=== PATIENT | male | born 1935 | race Caucasian/White ===

== ENCOUNTER 2024-06-26 17:20 | Inpatient (IN) | payer MEDICARE ==
[~2024-06-26] VITALS: Ht 172.7 cm; Wt 88.0 kg
[2024-06-26] MEDS ORDERED: ELIQUIS2.5 MG PO (17:52)
[2024-06-26] MEDS ORDERED: METF500 PO (17:53)
[2024-06-26] MEDS ORDERED: MethylPREDNISolone Sod Succ 125 MG Vial IV ONE (17:55)
[2024-06-26] MEDS ORDERED: Ipratropium/Albuterol SulF 2.5-0.5MG/3 ML Amp INH ONE ×2 (17:55)
[2024-06-26] MEDS ORDERED: METO50ER PO (18:29)
[2024-06-26] MEDS ORDERED: LOSARTAN-HCTZ1 EAC5 PO (18:29)
[2024-06-26] MEDS ORDERED: POTCHL20ER PO (18:30)
[2024-06-26] MEDS ORDERED: FURO40 PO (18:30)
[2024-06-26] MEDS ORDERED: BASAGLAR K100 UNIT/1 SC (18:30)
[2024-06-26] MEDS ORDERED: MOUNJARO2.5 MG/0.5 SC (18:30)
[2024-06-26] MEDS ORDERED: ATOR20 PO (18:30)
[2024-06-26 18:43] LABS: BASOPHILS ABSOLUTE AUTO 0.05 K/mm3 (0.00-0.23); BASOPHILS PERCENT AUTO 0 % (0-2); EOSINOPHILS ABSOLUTE AUTO 0.04 K/mm3 (0.00-0.68); EOSINOPHILS PERCENT AUTO 0 % (0-6); Hematocrit 34.8 % (37.0-53.0); Hemoglobin 11.9 g/dL (13.5-17.5); IMMATURE GRAN ABSOLUTE AUTO 0.04 K/mm3 (0.00-0.10); IMMATURE GRAN PERCENT AUTO 0 % (0-1); LYMPHOCYTES ABSOLUTE AUTO 2.16 K/mm3 (0.84-5.20); LYMPHOCYTES PERCENT AUTO 17 % (21-46); MONOCYTES ABSOLUTE AUTO 1.24 K/mm3 (0.16-1.47); MONOCYTES PERCENT AUTO 10 % (4-13); Mean Corpuscular HGB 33.8 pg (26.0-34.0); Mean Corpuscular HGB Conc 34.2 g/dL (31.5-36.5); Mean Corpuscular Volume 99 fL (80-100); Mean Platelet Volume 9.7 fL (9.1-12.4); NEUTROPHILS ABSOLUTE AUTO 9.17 K/mm3 (1.96-9.15); NEUTROPHILS PERCENT AUTO 72 % (41-73); Platelet Count 322 K/mm3 (150-400); RDW Coefficient Variation 13.2 % (11.7-14.2); RDW Standard Deviation 46.9 fL (35.1-46.3); Red Blood Cell Count 3.52 M/mm3 (4.30-5.90)
[2024-06-26 19:01] LABS: Bun/Creatinine Ratio 24.3 (12.0-20.0); Calcium, Blood 10.3 mg/dL (8.5-10.1); Creatinine, Blood 2.02 mg/dL (0.60-1.20); Magnesium, Blood 2.6 mg/dL (1.6-2.4)
[2024-06-26] MEDS ORDERED: NS 1,000 ML IV SCH (20:15)
[2024-06-26] MEDS ORDERED: Lactated Ringer's 1,000 ML IV SCH (20:40)
[2024-06-26] MEDS ORDERED: Ondansetron HCl 2 MG / ML 2ML Vial IV PRN (20:40)
[2024-06-26] MEDS ORDERED: Apixaban 5 MG Tab PO SCH (21:00)
[2024-06-26] MEDS ORDERED: Insulin Glargine-Yfgn 100 Unit/mL 3 ML SYR SC SCH (21:00)
--- NOTE | 2024-06-26 21:58 | NUR ---
ADMISSION NOTE PT ARRIVED IN RM 304 AT 2158 VIA WHEELCHAIR. PT NEEDED TO URINATE, SO PT WAS TAKEN TO RESTROOM W/ FWW AND 1PA. PT GAIT WAS WEAK. PT WAS AOX4. HE IS COOPERATIVE AND ABLE TO MAKE HIS NEEDS KNOWN. HE WAS FORGETFUL AT TIMES, OFTEN KEEPING HIS ARM UP WHEN RN ASKED TO KEEP HIS ARM RESTED WHEN VITALS WERE TAKEN. THIS RN TO ASSUME CARE.
[2024-06-26 22:11] VITALS: BP 91/46
[2024-06-26 23:38] VITALS: BP 113/57
--- NOTE | 2024-06-27 01:09 | NUR ---
NURSE NOTE PT C/O LOWER BACK PAIN, AND PT STATED HE WOULD TAKE OTC TYLENOL FOR IT. CALLED HOSPITALIST FOR ORDERS FOR TYLENOL. RECIEVED ORDERS.
[2024-06-27] MEDS ORDERED: Acetaminophen 325 MG TABLET PO PRN (01:10)
[2024-06-27 04:40] LABS: Hemoglobin 11.3 g/dL (13.5-17.5); Mean Corpuscular HGB 33.6 pg (26.0-34.0); Mean Corpuscular HGB Conc 34.2 g/dL (31.5-36.5); Mean Corpuscular Volume 98 fL (80-100); Mean Platelet Volume 9.5 fL (9.1-12.4); Platelet Count 277 K/mm3 (150-400); RDW Coefficient Variation 13.1 % (11.7-14.2); RDW Standard Deviation 46.7 fL (35.1-46.3); Red Blood Cell Count 3.36 M/mm3 (4.30-5.90); White Blood Cell Count 10.38 K/mm3 (4.00-11.30)
[2024-06-27 04:56] VITALS: BP 115/62
[2024-06-27 05:08] LABS: Albumin, Blood 3.2 g/dL (3.4-5.0); Albumin/Globulin Ratio 0.8 (0.8-1.8); Bilirubin, Total 0.6 mg/dL (0.1-1.0); Bun/Creatinine Ratio 25.5 (12.0-20.0); Calcium, Blood 10.1 mg/dL (8.5-10.1); Creatinine, Blood 2.04 mg/dL (0.60-1.20); Potassium, Blood 3.7 mmol/L (3.5-5.5); Total Protein, Blood 7.2 g/dL (6.4-8.2)
--- NOTE | 2024-06-27 06:35 | NUR ---
SHIFT SUMMARY PT ARRIVED ON UNIT AT 2158. PT HAS BEEN RESTING IN BED OVERNIGHT. PT REMAINED AOX4, COOPERATIVE, AND ABLE TO MAKE NEEDS KNOWN. PT IS A 1PA W/ FWW. PT ON TELEMETRY. PT ONLY COMPLAINT WAS HIS BACK PAIN, WHICH HE TAKES TYLENOL OTC FOR. RN WAS ABLE TO GET ORDERS FOR TYLENOL, AND PT'S PAIN HAS BEEN RELIEVED WITH IT AND REST. NO ACUTE EVENTS OVERNIGHT.
[2024-06-27 07:21] VITALS: BP 122/65
[2024-06-27] MEDS ORDERED: Insulin Human Lispro 100 Units/ML 3ML Syringe SC SCH (07:30)
[2024-06-27] MEDS ORDERED: Atorvastatin 10 MG Tab PO SCH (09:00)
[2024-06-27] MEDS ORDERED: Rivaroxaban 10 MG Tab PO SCH (09:00)
[2024-06-27] MEDS ORDERED: Metoprolol Succinate 50 MG TABCR PO SCH (09:00)
[2024-06-27] MEDS ORDERED: ALBU90OI INH (10:56)
[2024-06-27] MEDS ORDERED: ACET500 PO (10:56)
[2024-06-27] MEDS ORDERED: THERA-D2000 UNIT PO (10:57)
[2024-06-27] MEDS ORDERED: DOCU100 PO (10:57)
[2024-06-27] MEDS ORDERED: L-Lysine500 M1 PO (10:59)
[2024-06-27] MEDS ORDERED: TRAM50 PO (11:00)
[2024-06-27] MEDS ORDERED: NITR.4SL SL (11:00)
[2024-06-27] MEDS ORDERED: FISH OIL 1,2001 EAC4 PO (11:00)
[2024-06-27] MEDS ORDERED: ZINC50 M3 PO (11:01)
[2024-06-27] MEDS ORDERED: TRIDERM28.4 GM TOP (11:01)
[2024-06-27 12:09] VITALS: BP 153/71
[2024-06-27] MEDS ORDERED: Lactated Ringer's 1,000 ML IV SCH (12:15)
[2024-06-27] MEDS ORDERED: TraMADol HCl 50 MG Tab PO PRN (12:15)
[2024-06-27 15:23] VITALS: BP 119/75
[2024-06-27] MEDS ORDERED: Albuterol 2.5 MG/3 ML VIAL INH PRN (15:50)
[2024-06-27] MEDS ORDERED: Sennosides 8.6 MG Tab PO ONE (18:45)
[2024-06-27] MEDS ORDERED: Polyethylene Glycol 3350 17 gm PO PRN (18:50)
[2024-06-27 19:18] VITALS: BP 134/64
--- NOTE | 2024-06-27 19:52 | NUR ---
SHIFT SUMMARY PATIENT WITH NO ACUTE EVENTS IN AM. MEDICATED FOR PAIN PER EMAR. HE TRIED GETTING UP TO BATHROOM WITH 1 PERSON ASSIST AND WALKER AROUND 4PM. HE MAKE IT TO BATHROOM WITH NO ISSUES. UPON WALKING BACK TO BED HE C/O BACK PAIN INCREASING, THEN BACK TIGHTENED/HUNCHED OVER AND PATIENT STATES, MY KNEES ARE GOING WEAK, BASEBALL CLUB MANAGER ASKE PATIEND IF HE CAN WALK TO BED OR NEEDS TO SLIDE TO FLOOR, HE SAID SLIDE TO FLOOR AND PROCEEDED TO SLIDE TO FLOOR WITH ASSISTANCE OF THIS BASEBALL CLUB MANAGER HOLDING UNDER HIS ARMS AN STANDING IN DOORWAY/LEANING AGAINST IT. PATIENT WITH NO INJURIES HE WAS ASSISTED TO FLOOR. HE TRIED STANDING UP WITH GREAT DIFFICULTY AND THEN WAS AGREABLE TO LIFT. LIFT SHEET PLACED UNDER PATIENT AND GURWINDER USED TO GET HIM BACK TO BED. THIS BASEBALL CLUB MANAGER DISCUSSED ONLY STANDING AT BEDSIDE TO USE URINAL MOVING FORWARD UNTIL AFTER THERAPY EVALUATES. HE IS AGREABLE AND ORIENTEDX4, COOPERATIVE WITH CARE AND CALLS APPROPRAIATELY.
[2024-06-27 23:03] LABS: Source, Urine Clean Catch
[2024-06-27 23:14] LABS: Appearance, Urine Clear (Clear); Bilirubin, Urine Neg (Neg); Blood, Urine 5+ (Neg); Color, Urine Yellow (P-Yellow); Glucose Qualitative, Urine Neg (Neg); Ketones, Urine Neg (Neg); Leukocyte Esterase, Urine Neg (Neg); Nitrite, Urine Neg (Neg); Protein, Urine 1+ (Neg); Specific Gravity, Urine 1.005 (1.003-1.022); Urobilinogen, Urine NORM (Normal)
[2024-06-27 23:43] LABS: Bacteria Few /hpf; Red Blood Cells, Urine 25-50 /hpf (0-2); Squamous Epithelial Cells Few /hpf (Few); White Blood Cells, Urine 0-2 /hpf (0-5)
[2024-06-28] VITALS (7 sets, daily range): BP systolic 102–150; BP diastolic 53–78
[2024-06-28 01:17] LABS: Eosinophils-Raw #,Urine 0
[2024-06-28 01:18] LABS: White Blood Cells Urine 0-2 /hpf (0-5)
[2024-06-28 05:03] LABS: Hematocrit 33.5 % (37.0-53.0); Hemoglobin 11.5 g/dL (13.5-17.5); Mean Corpuscular HGB Conc 34.3 g/dL (31.5-36.5); Mean Corpuscular Volume 96 fL (80-100); Mean Platelet Volume 9.7 fL (9.1-12.4); Platelet Count 282 K/mm3 (150-400); RDW Coefficient Variation 12.8 % (11.7-14.2); RDW Standard Deviation 45.2 fL (35.1-46.3); Red Blood Cell Count 3.48 M/mm3 (4.30-5.90)
--- NOTE | 2024-06-28 05:30 | NUR ---
SHIFT SUMMARY; PATIENT SLEPT IN SHORT INTERVALS. DID NOT REQUIRE ANY PRN MEDS, TELE DISCONTINUED WE NEEDED TELE BOXES, DR FELT HE WAS STABLE ENOUGH TO STOP MONITORING. PATIENT DOES NOT USE CALL LIGHTJUST SETS OFF BED ALARM.
[2024-06-28 06:17] LABS: Albumin, Blood 3.2 g/dL (3.4-5.0); Anion Gap 12 mmol/L (3-11); Blood Urea Nitrogen 42 mg/dL (8-24); Bun/Creatinine Ratio 27.6 (12.0-20.0); CO2, Blood 25 mmol/L (21-32); Calcium, Blood 10.1 mg/dL (8.5-10.1); Chloride, Blood 104 mmol/L (98-108); Creatinine, Blood 1.52 mg/dL (0.60-1.20); Glomerular Filtration Rate 44 (60-); Glucose, Blood 122 mg/dL (70-99); Magnesium, Blood 2.4 mg/dL (1.6-2.4); Phosphorus, Blood 3.3 mg/dL (2.5-4.9); Potassium, Blood 3.6 mmol/L (3.5-5.5); Sodium, Blood 137 mmol/L (136-145)
[2024-06-28] MEDS ORDERED: Cholecalciferol 1000 Unit Tablet (=25MCG) PO SCH (09:00)
[2024-06-28] MEDS ORDERED: Sennosides 8.6 MG Tab PO SCH (09:00)
--- NOTE | 2024-06-28 16:09 | NUR ---
CASE CONFRENCE. PAIN IS A BARRIER TO PATIENT WORKING WITH PT. DISCUSSED MEDICATION OPTIONS WITH DR. ROTH AND PC TEAM TO DEVELOP A MEDICATION REGIMINE FOR PATIENT. DR. GALVAN WILL CONSULT ON PATIENT TOMORROW TO DISCUSS OPTIONS FOR TREATMENT. PC WILL FOLLOW UP WITH GOC CONVERSATION.
[2024-06-28] MEDS ORDERED: OxyCODONE HCL 5 MG TAB PO PRN (16:30)
--- NOTE | 2024-06-28 16:30 | NUR ---
PT HAD TO URINATE, I ASSISTED PT W/ URINAL WHILE SITTING ON SIDE OF BED. THERE WAS BROWN STOOL SMEARED ON THE SHEETS AND PULL UP. PT STOOD W/ WALKER W/ ASSISTANCE IN CHANGING HIS PULL UP. PT STOOD AND BOTH LEGS GAVE OUT AND WENT OUT FROM UNDERNEATH HIM. PT LANDED SITTING ON SIDE OF BED. PT STATES THAT HE HAD A SHARP PAIN IN HIS LOWER BACK WHEN HE STOOD UP. I THEN ASSISTED PT TO A LYING POSITION IN BED, AND ASSISTED WITH TURNING IN BED TO CHANGE SHEETS AND PROVIDE HIM W/ A CLEAN PULL UP. PT STATES PAIN LEVEL 7/10. CALL LIGHT IN REACH, DAUGHTER AT BEDSIDE.
[2024-06-28] MEDS ORDERED: Acetaminophen 500 MG Tab PO SCH (17:00)
[2024-06-28] MEDS ORDERED: Lidocaine 4% 1 Patch TOP SCH (17:00)
--- NOTE | 2024-06-28 18:50 | NUR ---
SHIFT SUMMARY PATIENT WITH INCREASING PAIN TODAY AND WEAKNESS OF KNEES. PT TRIED STANDING THIS AFTERNOON TO USE URINAL ASSISTED BY SANDBLASTER PAINT SPRAYER SABINO BUT HIS KNEES BUCKLED AND HE LANDED ON THE BED. NO INJURIES NOTED. DR ROTH NOTIFIED. HE IS MEDICATED FOR PAIN PER EMAR. UPON USE OF URINAL THIS EVENING PATIENT STATED IT STUNG A LITTLE WHEN HE URINATED AND NOTED TO HAVE SCANT BRIGHT RED BLOOD AT TIP OF PENIS, NO ABRASION SPOT NOTED HOWVER URINAL COULD HAVE SCRAPED THE TIP OF PENIS. DR ROTH NOTIFIED. BED IN LOW POSITION, BED ALARM ON, CALL LIGHT IN REACH.
[2024-06-28] MEDS ORDERED: Docusate Sodium/Senna 1 Tab PO SCH (21:00)
[2024-06-29 04:34] VITALS: BP 144/91
--- NOTE | 2024-06-29 05:44 | NUR ---
MAINT MECHANIC SUMMARY PT HAS BECOME INCONTINENT AND IS UNABLE TO WALK BECAUSE OF POOR PAIN CONTROL. HE WAS STARTED ON 2.5MG OXYCODONE Q6 HOURS AND HE SAYS HE NOTICED A LITTLE DIFFERENCE BUT IS NOT SEE ENOUGH OF A CHANGE IN HIS PAIN. I DID OFFER TO CALL THE MAINT MECHANIC DOCTOR THIS MORNING BUT HE SAID HE WOULD LIKE TO DISCUSS HIS OPTIONS WITH HIS DOCTOR IN THE MORNING. HE SAYS HIS SEVERE PAIN IS MOSTLY JUST WITH ANY MOVEMENT SO HE IS OK TO TRY TO SLEEP FOR NOW. BUT UNTIL HE FINDS BETTER PAIN CONTROL HE IS TEARFUL AND MOANS EVERY TIME WE CHANGE HIS DEPENDS AND IS UNABLE TO EVEN GET TO THE EDGE OF THE BED TO USE A URINAL SO HE HAS JUST BEEN URINATING IN HIS DEPENDS.
[2024-06-29] MEDS ORDERED: OxyCODONE HCL 5 MG TAB PO PRN (07:25)
[2024-06-29 07:36] VITALS: BP 145/78
[2024-06-29] MEDS ORDERED: OxyCODONE HCL 5 MG TAB PO ONE (07:45)
[2024-06-29] MEDS ORDERED: FentaNYL Citrate 50 MCG/ML 2 ML Injection IV PRN (09:50)
[2024-06-29] MEDS ORDERED: HYDROmorphone HCl/Pf 1MG SYR IV PRN (12:15)
--- NOTE | 2024-06-29 12:22 | NUR ---
DISCCUSSED PATIENTS PAIN WITH BEDSIDE RN. BARBARA WAS STILL EXPERIENCING AN 8/10 PAIN AT THIS TIME. DISCUSSED PAIN REGIMINE WITH PC TEAM AND PROVIDER. MEDICATIONS ADJUSTED AND REQUESTED BEDSIDE RN TO UPDATE PC WITH RESULTS. PER ROUNDS DR. GALVAN WILL ROUND ON PT TODAY TO DISCUSS OPTIONS.
[2024-06-29] MEDS ORDERED: Polyethylene Glycol 3350 17 gm PO PRN (16:15)
[2024-06-29 17:06] LABS: Source, Urine Clean Catch
[2024-06-29 17:23] LABS: Appearance, Urine Clear (Clear); Bilirubin, Urine Neg (Neg); Blood, Urine 4+ (Neg); Color, Urine Yellow (P-Yellow); Glucose Qualitative, Urine 1+ (Neg); Ketones, Urine Neg (Neg); Leukocyte Esterase, Urine Neg (Neg); Nitrite, Urine Neg (Neg); Protein, Urine 1+ (Neg); Specific Gravity, Urine 1.015 (1.003-1.022); Urobilinogen, Urine NORM (Normal)
[2024-06-29 18:01] LABS: Bacteria Rare /hpf; Squamous Epithelial Cells Not Seen /hpf (Few); White Blood Cells, Urine 0-2 /hpf (0-5)
--- NOTE | 2024-06-29 18:25 | NUR ---
SHIFT SUMMARY PT AOX4, BR AT THIS TIME DUE TO PAIN. PAIN MANAGEMENT IMPROVED THROUGHOUT THE SHIFT, PT STATES IMPROVED OVERALL. BOWEL CARE ADMINISTERED PER THE EMAR. PT CONTINENT/INCONTINENT, DOES REQUEST THE URINAL AT TIMES. REPOSITIONED TOLERATED, HEATING PAD IN PLACE. MEDICATED FOR PAIN PER THE EMAR. FAMILY AT THE BS, UPDATED. THE ONCOLOGIST DID NOT CONSULT THIS SHIFT. CALL LIGHT WITHIN REACH, BED LOCKED AND IN THE LOWEST POSITION. WILL REPORT TO ONCOMING NURSE.
[2024-06-29 19:13] VITALS: BP 97/64
[2024-06-29 19:17] VITALS: BP 116/71
[2024-06-30 03:07] VITALS: BP 117/63
--- NOTE | 2024-06-30 06:43 | NUR ---
MAT MAKER SUMMARY PT HAS NOTICED A HUGE DIFFERENCE IN HIS PAIN CONTROL. HE IS FINALLY ABLE TO SIT AT THE EDGE OF THE BED TO URINATE. HE EVEN WAS ABLE TO GET OUT OF BED AND SIT IN A CHAIR FOR A SHORT BATH AND LINEN CHANGE. HE WAS ABLE TO SLEEP AND IS VERY APPRECIATIVE FOR HIS NEW MEDICATION REGIMEN. HE WAS EVEN CONTINENT MOST OF THE NIGHT BECAUSE HE WAS ABLE TO MOVE WITHOUT SEVERE PAIN. HE DOES STILL EXPERIENCE SEVERE PAIN WHEN HIS PAIN MEDICATION WEARS OFF. ANTICIPATING AN ONCOLOGY CONSULT TODAY. PTS BED ALARM IS ON AND HIS CALL LIGHT IS WITHIN REACH.
[2024-06-30 07:24] VITALS: BP 138/75
[2024-06-30] MEDS ORDERED: Apixaban 5 MG Tab PO SCH (09:00)
[2024-06-30] MEDS ORDERED: HYDROmorphone HCl 2 MG Tab PO PRN (10:20)
--- NOTE | 2024-06-30 15:15 | NUR ---
MET WITH PATIENT ASSESSED PAIN. HE REPORTED THAT HIS PAIN IS CONTROLED BETTER TODAY. RELAYED THAT WE WOULD LIKE TO TRANSITION HIM TO ORAL MEDICATIONS TO ENSURE THAT HE IS PAIN IS MANAGED OUTPATIENT. BARBARA WAS AGREEABLE TO THIS PLAN. CALLED ONCOLOGY TO CLARIFY IF PROVIDER WAS COMING TO CONSULT.
[2024-06-30 15:34] VITALS: BP 122/73
--- NOTE | 2024-06-30 16:27 | NUR ---
SHIFT SUMMARY: PATIENT A/OX4, PLEASANT AND COOPERATIVE c CARE. PATIENT MEDICATED FOR PAIN PER MAR AND HEATING PAD TO LOWER BACK. PATIENT REPORTS PAIN CONTROLLED HAS IMPROVED TODAY. PATIENT IS CONT/INCON OF BLADDER, USES URINAL c FIELD TECHNICAL SPECIALIST, ATTENDS IN PLACED AND CHANGED PRN. PATIENT HAS HAD NO BLOOD PER SHANT AREA AND URINE NOTED THIS SHIFT. PATIENT RECEIVED BEDBATH AND LINEN CHANGED. PATIENT REPOSITIONED, BLE'S ELEVATED ON PILLOWS T/O SHIFT. PATIENT RECEIVED SCHEDULED MEDS PER EMAR. VITAL SIGNS REVIEWED. CALL LIGHT IN REACH. PATIENT AWAITING FOR ONCOLOGY CONSULT.
--- NOTE | 2024-06-30 16:45 | NUR ---
CONSULT NOTE: DR. GALVAN (ONCOLOGY) CAME IN FOR CONSULT AT 1642, SPOKE TO PATIENT c PLAN OF CARE. PER DR. GALVAN HE WILL COMMUNICATE c DR. ROTH AND DAUGHTER (EBER).
[2024-06-30 18:30] LABS: Ferritin, Serum 119 ng/mL (26-388); Iron Serum 34 ug/dL (65-175); Total Iron Binding Capacity 242 ug/dL (250-450)
[2024-06-30 18:43] LABS: Cancer Antigen 19-9 16.2 U/mL (2.0-37.0); Carcinoembryonic Antigen 4.2 ng/mL (0.0-3.0)
[2024-06-30 19:29] VITALS: BP 114/58
[2024-07-01 03:10] VITALS: BP 131/62
[2024-07-01 05:16] LABS: Hematocrit 33.1 % (37.0-53.0); Hemoglobin 11.4 g/dL (13.5-17.5); Mean Corpuscular HGB 33.8 pg (26.0-34.0); Mean Corpuscular HGB Conc 34.4 g/dL (31.5-36.5); Mean Corpuscular Volume 98 fL (80-100); Mean Platelet Volume 9.9 fL (9.1-12.4); Platelet Count 273 K/mm3 (150-400); RDW Coefficient Variation 12.9 % (11.7-14.2); Red Blood Cell Count 3.37 M/mm3 (4.30-5.90)
--- NOTE | 2024-07-01 05:41 | NUR ---
PRIVATE EQUITY ASSOCIATE SUMMARY WILL ASK DAY SHIFT MD FOR ADDITIONAL BOWEL CARE ORDERS. PT WOULD LIKELY BENEFIT FROM A SUPPOSITORY, ENEMA, OR BOTH. PT IS NOW ABLE TO MOVE WITH YELLING OUT IN PAIN. THIS IS THE BEST NIGHT SLEEP HE HAS HAD IN SEVERAL DAYS. IMAGING DONE YESTERDAY SHOWS METS AT T10-T12. PER REPORT, STAFF FROM [facility] WILL BE VISITING PT TODAY. WE WILL WORK ON DISCHARGE PLANNING AND PT WILL FOLLOW-UP OUTPATIENT FOR HIS CANCER CARE. BED ALARM IS ON AND CALL LIGHT IS WITHIN REACH.
[2024-07-01 05:48] LABS: Anion Gap 11 mmol/L (3-11); Blood Urea Nitrogen 26 mg/dL (8-24); Bun/Creatinine Ratio 20.5 (12.0-20.0); CO2, Blood 24 mmol/L (21-32); Calcium, Blood 9.4 mg/dL (8.5-10.1); Chloride, Blood 105 mmol/L (98-108); Creatinine, Blood 1.27 mg/dL (0.60-1.20); Glomerular Filtration Rate 54 (60-); Glucose, Blood 88 mg/dL (70-99); Magnesium, Blood 2.1 mg/dL (1.6-2.4); Phosphorus, Blood 2.8 mg/dL (2.5-4.9); Potassium, Blood 4.1 mmol/L (3.5-5.5); Sodium, Blood 136 mmol/L (136-145)
[2024-07-01 07:20] VITALS: BP 110/63
[2024-07-01] MEDS ORDERED: Lactulose 20 GM/30 ML UDC PO ONE (13:00)
[2024-07-01 16:11] VITALS: BP 121/74
--- NOTE | 2024-07-01 18:20 | NUR ---
SHIFT SUMMARY: PATIENT HAS HAD NO NEW ACUTE CHANGES THIS SHIFT. PATIENT REPORTS PAIN WELL CONTROLLED c CURRENT PAIN MEDICATION. PATIENT SAT UP IN THE CHAIR FOR ABOUT AN HOUR THIS SHIFT. [facility] CAME TODAY AN SPOKE TO PATIENT AND FAMILY AT BEDSIDE. PATIENT SLEPT ON/OFF T/O SHIFT. PATIENT RECEIVED PRN BOWEL CARE AND OT DOSE LACTULOSE, SO FAR, NO BM THIS SHIFT. PATIENT REPORTS PASSING GAS, CONTIN/INCON OF BLADDER, USES URINAL c BOLOGNA LACER AND ATTENDS PLACED AND CHANGED PRN. VITAL SIGNS REVIEWED. CALL LIGHT IN REACH.
[2024-07-01 19:23] VITALS: BP 129/67
[2024-07-02 04:45] LABS: Hematocrit 32.2 % (37.0-53.0); Hemoglobin 11.1 g/dL (13.5-17.5); Mean Corpuscular HGB 33.5 pg (26.0-34.0); Mean Corpuscular HGB Conc 34.5 g/dL (31.5-36.5); Mean Corpuscular Volume 97 fL (80-100); Mean Platelet Volume 9.7 fL (9.1-12.4); Platelet Count 250 K/mm3 (150-400); RDW Coefficient Variation 12.8 % (11.7-14.2); RDW Standard Deviation 45.9 fL (35.1-46.3); Red Blood Cell Count 3.31 M/mm3 (4.30-5.90); White Blood Cell Count 11.39 K/mm3 (4.00-11.30)
[2024-07-02 05:02] LABS: Albumin, Blood 2.9 g/dL (3.4-5.0); Anion Gap 11 mmol/L (3-11); Blood Urea Nitrogen 33 mg/dL (8-24); Bun/Creatinine Ratio 23.4 (12.0-20.0); CO2, Blood 23 mmol/L (21-32); Calcium, Blood 9.4 mg/dL (8.5-10.1); Chloride, Blood 106 mmol/L (98-108); Creatinine, Blood 1.41 mg/dL (0.60-1.20); Glomerular Filtration Rate 48 (60-); Glucose, Blood 99 mg/dL (70-99); Magnesium, Blood 2.4 mg/dL (1.6-2.4); Potassium, Blood 4.2 mmol/L (3.5-5.5); Sodium, Blood 136 mmol/L (136-145)
[2024-07-02 05:17] VITALS: BP 167/73
[2024-07-02 05:20] VITALS: BP 136/80
--- NOTE | 2024-07-02 05:49 | NUR ---
WELDER PIPE MAKING SUMMARY WILL ASK DAY SHIFT MD FOR A SUPPOSITORY OR ENEMA OR BOTH PT HASNT HAD A BOWEL MOVEMENT IN A WEEK DESPITE DAILY LAXATIVES AND HIS CONSTIPATION IS STARTING TO CAUSE HIM DISTRESS. HE IS PASSING GAS AND HAS ACTIVE BOWEL TONES. NO N/V. PTS PAIN CONTROL WITH THE ORAL HYDROMORPHONE HAS BEEN EXCELLENT WITH NO SIGNIFICANT DROWSINESS OR SIDE EFFECTS, EXCEPT CONSTIPATION. HE IS ABLE TO GET UP WITH SBA AND HAVING LESS INCONTINENT EPISODES. HE IS NO LONGER SCREAMING OUT IN PAIN DURING CARES AND REPOSITIONINGS. BED ALARM IS ON AND CALL LIGHT IS WITHIN REACH.
[2024-07-02 07:56] VITALS: BP 114/88
[2024-07-02] MEDS ORDERED: Bisacodyl 10 MG Supp PR PRN (10:50)
[2024-07-02 12:48] VITALS: BP 120/70
[2024-07-02 15:59] VITALS: BP 106/59
--- NOTE | 2024-07-02 17:44 | NUR ---
SHIFT SUMMARY: PATIENT RECEIVED RECTAL SUPP TODAY, c RESULT- ONE MEDIUM HARD BM. PATIENT PAIN WELL CONTROLLED c EMAR PAIN MEDS. PATIENT CONT/INCON OF BLADDER, USES URINAL c GEOSCIENCE TECHNICIAN, ATTENDS IN PLACED AND CHANGED PRN. PATIENT HAS FAIR APPETITE AND DRINKING FLUIDS T/O THE DAY. PATIENT HAS HAD NO COMPLAINTS OR NO NEW CONCERNED THIS SHIFT. VITAL SIGNS REVIEWED. BED ALARM ON FOR SAFETY. CALL LIGHT IN REACH.
[2024-07-02 19:19] VITALS: BP 150/64
[2024-07-03 05:02] LABS: BASOPHILS ABSOLUTE AUTO 0.05 K/mm3 (0.00-0.23); BASOPHILS PERCENT AUTO 1 % (0-2); EOSINOPHILS ABSOLUTE AUTO 0.38 K/mm3 (0.00-0.68); EOSINOPHILS PERCENT AUTO 4 % (0-6); Hematocrit 32.3 % (37.0-53.0); Hemoglobin 10.9 g/dL (13.5-17.5); IMMATURE GRAN ABSOLUTE AUTO 0.05 K/mm3 (0.00-0.10); IMMATURE GRAN PERCENT AUTO 1 % (0-1); LYMPHOCYTES ABSOLUTE AUTO 2.26 K/mm3 (0.84-5.20); LYMPHOCYTES PERCENT AUTO 21 % (21-46); MONOCYTES ABSOLUTE AUTO 1.05 K/mm3 (0.16-1.47); MONOCYTES PERCENT AUTO 10 % (4-13); Mean Corpuscular HGB 33.4 pg (26.0-34.0); Mean Corpuscular HGB Conc 33.7 g/dL (31.5-36.5); Mean Corpuscular Volume 99 fL (80-100); Mean Platelet Volume 9.6 fL (9.1-12.4); NEUTROPHILS ABSOLUTE AUTO 6.88 K/mm3 (1.96-9.15); NEUTROPHILS PERCENT AUTO 64 % (41-73); Platelet Count 266 K/mm3 (150-400); RDW Coefficient Variation 12.7 % (11.7-14.2); RDW Standard Deviation 45.8 fL (35.1-46.3); Red Blood Cell Count 3.26 M/mm3 (4.30-5.90); White Blood Cell Count 10.67 K/mm3 (4.00-11.30)
[2024-07-03 05:08] VITALS: BP 120/68
[2024-07-03 05:21] LABS: Albumin, Blood 2.8 g/dL (3.4-5.0); Anion Gap 10 mmol/L (3-11); Blood Urea Nitrogen 41 mg/dL (8-24); Bun/Creatinine Ratio 24.7 (12.0-20.0); CO2, Blood 25 mmol/L (21-32); Calcium, Blood 9.4 mg/dL (8.5-10.1); Chloride, Blood 104 mmol/L (98-108); Creatinine, Blood 1.66 mg/dL (0.60-1.20); Glomerular Filtration Rate 39 (60-); Glucose, Blood 73 mg/dL (70-99); Phosphorus, Blood 3.7 mg/dL (2.5-4.9); Potassium, Blood 4.1 mmol/L (3.5-5.5); Sodium, Blood 135 mmol/L (136-145)
--- NOTE | 2024-07-03 06:53 | NUR ---
CASE LOADER OPERATOR SUMMARY NO ACUTE EVENTS OVERNIGHT. ENCOURAGING ORAL FLUIDS. PT IS DRINKING A GOOD AMOUNT BUT BUN UPTRENDING. BED ALARM ON AND CALL LIGHT WITHIN REACH.
--- NOTE | 2024-07-03 07:48 | NUR ---
ASSUMED CARE OF PATIENT. SLEEPING ON RIGHT SIDE DURING SHIFT CHANGE REPORT. NO ACUTE NEEDS. BED IN LOWEST POSITION c HOB ELEVATED. CALL LIGHT WITHIN REACH.
[2024-07-03 08:18] VITALS: BP 144/70
--- NOTE | 2024-07-03 16:02 | NUR ---
REVIEWED MEDICATION, DISCUSSED WITH BEDSIDE RN. PATIENT REPORTS BEING COMFORTABLE AT THIS TIEM
[2024-07-03 16:36] VITALS: BP 140/62
[2024-07-03 19:28] VITALS: BP 110/73
--- NOTE | 2024-07-03 19:37 | NUR ---
[id number] SUMMARY: A&Ox3-4, PLEASANT AND COOPERATIVE c CARE. CALLS APPROPRIATLEY MOST OF THE TIME; CHAIR ALARM FOR IMPULSIVENESS. INCONTINENT OF BOWEL; CALLS FOR URINAL ASSISTANCE FOR VOIDING. NO C/O PAIN TODAY DESPITE OFFERS OF PAIN MEDS. [id number] MEETING c FAMILY. POLST ON DOOR FOR PROVIDER TO SIGN. REPORT TO ONCOMING NURSE.
[2024-07-04 00:54] VITALS: BP 131/81
[2024-07-04 05:01] VITALS: BP 118/57
[2024-07-04 05:22] LABS: BASOPHILS ABSOLUTE AUTO 0.05 K/mm3 (0.00-0.23); BASOPHILS PERCENT AUTO 1 % (0-2); EOSINOPHILS ABSOLUTE AUTO 0.36 K/mm3 (0.00-0.68); EOSINOPHILS PERCENT AUTO 4 % (0-6); Hematocrit 32.4 % (37.0-53.0); IMMATURE GRAN ABSOLUTE AUTO 0.03 K/mm3 (0.00-0.10); IMMATURE GRAN PERCENT AUTO 0 % (0-1); LYMPHOCYTES ABSOLUTE AUTO 1.82 K/mm3 (0.84-5.20); LYMPHOCYTES PERCENT AUTO 21 % (21-46); MONOCYTES ABSOLUTE AUTO 0.99 K/mm3 (0.16-1.47); MONOCYTES PERCENT AUTO 12 % (4-13); Mean Corpuscular HGB 33.3 pg (26.0-34.0); Mean Corpuscular Volume 98 fL (80-100); Mean Platelet Volume 9.7 fL (9.1-12.4); NEUTROPHILS ABSOLUTE AUTO 5.24 K/mm3 (1.96-9.15); NEUTROPHILS PERCENT AUTO 62 % (41-73); Platelet Count 269 K/mm3 (150-400); RDW Coefficient Variation 12.6 % (11.7-14.2); RDW Standard Deviation 45.4 fL (35.1-46.3); White Blood Cell Count 8.49 K/mm3 (4.00-11.30)
[2024-07-04 05:52] LABS: Albumin, Blood 2.7 g/dL (3.4-5.0); Anion Gap 12 mmol/L (3-11); Blood Urea Nitrogen 46 mg/dL (8-24); Bun/Creatinine Ratio 30.5 (12.0-20.0); CO2, Blood 23 mmol/L (21-32); Calcium, Blood 9.6 mg/dL (8.5-10.1); Chloride, Blood 103 mmol/L (98-108); Creatinine, Blood 1.51 mg/dL (0.60-1.20); Glomerular Filtration Rate 44 (60-); Glucose, Blood 105 mg/dL (70-99); Phosphorus, Blood 3.8 mg/dL (2.5-4.9); Potassium, Blood 4.5 mmol/L (3.5-5.5); Sodium, Blood 133 mmol/L (136-145)
--- NOTE | 2024-07-04 06:27 | NUR ---
PRINT GRAPHIC DESIGNER SUMMARY ENCOURAGED ORAL INTAKE THROUGHOUT THE NIGHT WITH EVERY 2 HOUR REPOSITIONINGS. PT DRANK 3 LARGE CUPS OF ICE WATER THIS SHIFT AND AN ENSURE. COMPLAINED OF SEVERE BACK PAIN THAT WAS RELIEVED WITH ORAL HYDROMORPHONE. BED ALARM IS ON AND CALL LIGHT IS WITHIN REACH.
[2024-07-04 07:22] VITALS: BP 135/61
--- NOTE | 2024-07-04 07:45 | NUR ---
ASSUMED CARE OF PATIENT. SLEEPING DURING SHIFT-CHANGE REPORT; WOKE TO GREET AND FELL BACK ASLEEP, IMMEDIATELY. LYING ON LET SIDE FACING WINDOW. CALL LIGHT IN REACH. NO ACUTE NEEDS.
[2024-07-04] MEDS ORDERED: HYDMOR2 PO (13:47)
[2024-07-04] MEDS ORDERED: PAIN RELIEF PA1 EACH TOP (13:51)
[2024-07-04 15:48] VITALS: BP 154/71
--- NOTE | 2024-07-04 19:44 | NUR ---
END OF SHIFT SUMMARY: A&Ox3-4. PLEASANT AND COOPERATIVE WITH CARE. CALLS APPROPRIATELY AND IS ABLE TO ADVOCATE NEEDS EFFECTIVELY. CONTINENT OF BOWEL AND BLADDER c SOME URGE INCONTINENCE. LBM TODAY. 1PA c FWW & GB. MEDS WHOLE c FLUIDS. SOME C/O LOW BACK PAIN TODAY RELIEVED WITH ROUTINE APAP. PLANS TO GO TO [facility] ON WEDNESDAY. BED IN LOWEST POSITION, CALL LIGHT WITHIN REACH, ALL NEEDS MET. REPORT TO ONCOMING NURSE.
[2024-07-04 20:14] VITALS: BP 146/75
[2024-07-05 04:55] VITALS: BP 141/62
--- NOTE | 2024-07-05 05:57 | NUR ---
AGING DEPARTMENT SUPERVISOR SUMMARY ENCOURAGED ORAL INTAKE THROUGHOUT THE NIGHT WITH EVERY 2 HOUR REPOSITIONINGS. HAD PT DRINK AN ENSURE IN THE MIDDLE OF THE NIGHT HIS MORNING BLOOD SUGARS HAVE BEEN SLIGHTLY LOW. PT OFTEN HAS A HARD TIME SLEEPING AT NIGHT BECAUSE HE REPORTS NOT BEING ABLE TO GET COMFORTABLE BECAUSE OF HIS LOWER BACK PAIN SO WE KEPT HIM ON A SCHEDULE OVERNIGHT WITH HIS PAIN MEDS AND HE WAS ABLE TO GET GOOD SLEEP IN BETWEEN DOSES. BED ALARM IS ON AND CALL LIGHT IS WITHIN REACH.
[2024-07-05 07:26] VITALS: BP 143/70
[2024-07-05 15:34] VITALS: BP 142/73
--- NOTE | 2024-07-05 19:56 | NUR ---
SUMMARY- PT A/O X3, USES CALL LIGHT, FORGETFUL- CHAIR AND BED ALARM SET. PT IS A 2 MAX GAIT BELT TX, MIN USE OF LEGS. CONT/INCONT OF URINE. SAT UP IN THE CHAIR MOST OF THE DAY. PAIN CONTROLLED WITH SCHEDULED TYLENOL AND DILAUDID PRN. PT TOLERATING FOOD AND FLUID, ADA DIET. SUGARS IN GOOD RANGE. PLAN FOR PT TO GO TO [facility] 07/06- REPORTED TO MOHAN NIXON RN
[2024-07-05 20:18] VITALS: BP 132/66
[2024-07-06 05:56] VITALS: BP 167/84
[2024-07-06 07:18] VITALS: BP 147/77
--- NOTE | 2024-07-06 07:46 | NUR ---
DEV TECHNICAL MGR SUMMARY ENCOURAGED ORAL INTAKE THROUGHOUT THE NIGHT WITH EVERY 2 HOUR REPOSITIONINGS. OFFERED PT AN ENSURE IN THE MIDDLE OF THE NIGHT SINCE HIS MORNING BLOOD SUGARS HAVE BEEN RUNNING A BIT LOW BUT PT REFUSED IT. PT OFTEN HAS A HARD TIME SLEEPING AT NIGHT BECAUSE HE REPORTS NOT BEING ABLE TO GET COMFORTABLE BECAUSE OF HIS LOWER BACK PAIN SO WE KEPT HIM ON A SCHEDULE OVERNIGHT WITH HIS PAIN MEDS AND HE WAS ABLE TO GET GOOD SLEEP IN BETWEEN DOSES. BED ALARM IS ON AND CALL LIGHT IS WITHIN REACH.
--- NOTE | 2024-07-06 07:51 | NUR ---
ASSUMED CARE OF PATIENT. SLEEPING DURING SHIFT-CHANGE REPORT. NO ACUTE NEEDS. BEDS IN LOWEST POSITION. CALL LIGHT WITHIN REACH. CHART REVIEW INITIATED.
--- NOTE | 2024-07-06 15:59 | NUR ---
MEDICAL TRANSPORTATION UNABLE TO TRANSPORT PATIENT UNTIL 1700. FACILITY UNABLE TO ACCOMMODATE LATE ADMIT; REQUESTING PATIENT BE TRANSPORTED TOMORROW. RIDE SET FOR 1100AM.
--- NOTE | 2024-07-06 18:30 | NUR ---
END OF SHIFT SUMMARY: A&Ox3-4. PLEASANT AND COOPERATIVE WITH CARE. CALLS APPROPRIATELY AND IS ABLE TO ADVOCATE NEEDS EFFECTIVELY. INITIALLY SUPPOSED TO DISCHARGE TO [facility] TODAY, BUT DUE TO TRANSPORTATION NOT ALIGNING c FACILITY STAFFING NEEDS, DISCHARGE POSTPONED UNTIL 1100 TOMORROW. CONTINENT OF BOWEL AND BLADDER; BSC FOR BM AND URINAL FOR VOIDING. 2PA c GB DUE TO INTERMITTENT BUCKLING OF BLEs. SOME C / O LOW BACK PAIN MEDICATED c PRN APAP AND ROUTINE LIDOCAINE PATCH TO RIGHT LOWER BACK. ALL MEDS SENT TO [facility] AND CONFIRMED WITH PHARMACISTASAD. BED IN LOWEST POSITION, CALL LIGHT WITHIN REACH, ALL NEEDS MET. REPORT TO ONCOMING NURSE.
[2024-07-06 19:15] VITALS: BP 154/79
[2024-07-07 04:23] VITALS: BP 171/77
[2024-07-07 04:24] VITALS: BP 154/87
--- NOTE | 2024-07-07 06:27 | NUR ---
SHIFT SUMMARY PT ALERT AND ORIENTED, BUT FORGETFUL AND WITH SHORT TERM MEMORY DEFICITS. MEDICATED FOR BACK PAIN PER EMAR. HEATING PAD TO BACK ON 20 MIN/OFF 20 MIN WITH STATED IMPROVEMENT OF BACK PAIN. PT CONT/INCONT OF URINE DURING THE NIGHT DUE TO URGENCY. PT 1-2 ASSIST TRANSFERING FROM CHAIR TO BED DUE TO WEAKNESS. BED ALARM ON, BED IN LOWEST POSITION, CALL LIGHT WITHIN REACH, SIDERAILS UP X2.
[2024-07-07 07:36] VITALS: BP 148/71
--- NOTE | 2024-07-07 11:16 | NUR ---
DISCHARGE SUMMARY PT DC THIS SHIFT TO [facility]. CALLED AND GAVE REPORT TO NURSE AT FACILITY. THEY REQUESTED A SCRIBT FOR BOWEL CARE. PHYSICIAN NOTIFIED AND PT WAS SENT WITH HARD COPY. ALL OF PT HARD COPY WERE IN DC PACKET WHICH WAS GIVEN TO CONVERSION MAN. PT LEFT VIA WHEELCHAIR.
== END 2024-07-07 11:10 | disposition home or self-care (01) | DRG 683 ==
LOC: ER 17:20 → ERHOLD 17:21 → MEDS 17:21 → ENPENDDIS 07-07 08:27 → MEDS 07-07 11:10
PROVIDERS: Family Medicine; Internal Medicine; Internal Medicine Hematology & Oncology; Nurse Practitioner Acute Care; Student in an Organized Health Care Education/Training Program; ADMIT Internal Medicine
DX: N17.9 Acute kidney failure, unspecified (principal); C34.91 Malignant neoplasm of unspecified part of right bronchus or lung; E87.1 Hypo-osmolality and hyponatremia; C34.92 Malignant neoplasm of unspecified part of left bronchus or lung; C79.51 Secondary malignant neoplasm of bone; M54.9 Dorsalgia, unspecified; N18.30 Chronic kidney disease, stage 3 unspecified; I12.9 Hypertensive chronic kidney disease with stage 1 through stage 4 chronic kidney disease, or unspecified chronic kidney disease; E11.649 Type 2 diabetes mellitus with hypoglycemia without coma; E66.9 Obesity, unspecified; M51.369 Other intervertebral disc degeneration, lumbar region without mention of lumbar back pain or lower extremity pain; E11.22 Type 2 diabetes mellitus with diabetic chronic kidney disease; E78.5 Hyperlipidemia, unspecified; Z87.891 Personal history of nicotine dependence; Z79.01 Long term (current) use of anticoagulants; Z79.4 Long term (current) use of insulin; Z79.899 Other long term (current) drug therapy; Z79.84 Long term (current) use of oral hypoglycemic drugs; E83.52 Hypercalcemia; R31.9 Hematuria, unspecified; Z68.29 Body mass index [BMI] 29.0-29.9, adult; E83.41 Hypermagnesemia; D63.1 Anemia in chronic kidney disease
CPT/HCPCS: 36415; 70450; 71260; 72131; 74177; 76770; 80048; 80053; 80069; 81001; 82378; 82550; 82565; 82570; 82728; 82947; 83540; 83550; 83735; 84153; 84540; 85025; 85027; 86301; 87205; 94760; 97110; 97162; 97530; 99285-25; A9270; G0378; J1171; J1815; J3010; J7030; J7120; Q9967

== ENCOUNTER 2024-08-25 16:20 | Inpatient (IN) | payer MEDICARE, OTHER ==
[~2024-08-25] VITALS: Ht 182.9 cm; Wt 79.6 kg
[~2024-08-25 16:20] MED LIST: ACET500 PO; ALBU90OI INH; ATOR20 PO; BASAGLAR K100 UNIT/1 SC; DOCU100 PO; ELIQUIS2.5 MG PO; FISH OIL 1,2001 EAC4 PO; FURO40 PO; HYDMOR2 PO; L-Lysine500 M1 PO; LOSARTAN-HCTZ1 EAC5 PO; METF500 PO; METO50ER PO; MOUNJARO2.5 MG/0.5 SC; NITR.4SL SL; PAIN RELIEF PA1 EACH TOP; POTCHL20ER PO; THERA-D2000 UNIT PO; TRAM50 PO; TRIDERM28.4 GM TOP; ZINC50 M3 PO
[2024-08-25] MEDS ORDERED: BASAGLAR K100 UNIT/1 SC (16:49)
[2024-08-25] MEDS ORDERED: ELIQUIS5 M3 PO (16:50)
[2024-08-25 17:32] LABS: BASOPHILS ABSOLUTE AUTO 0.02 K/mm3 (0.00-0.23); BASOPHILS PERCENT AUTO 0 % (0-2); EOSINOPHILS PERCENT AUTO 0 % (0-6); Hematocrit 29.7 % (37.0-53.0); Hemoglobin 9.9 g/dL (13.5-17.5); IMMATURE GRAN ABSOLUTE AUTO 0.16 K/mm3 (0.00-0.10); IMMATURE GRAN PERCENT AUTO 1 % (0-1); LYMPHOCYTES ABSOLUTE AUTO 0.76 K/mm3 (0.84-5.20); LYMPHOCYTES PERCENT AUTO 5 % (21-46); MONOCYTES ABSOLUTE AUTO 2.78 K/mm3 (0.16-1.47); MONOCYTES PERCENT AUTO 19 % (4-13); Mean Corpuscular HGB 32.8 pg (26.0-34.0); Mean Corpuscular HGB Conc 33.3 g/dL (31.5-36.5); Mean Corpuscular Volume 98 fL (80-100); Mean Platelet Volume 8.7 fL (9.1-12.4); NEUTROPHILS ABSOLUTE AUTO 10.72 K/mm3 (1.96-9.15); NEUTROPHILS PERCENT AUTO 74 % (41-73); NRBC ABSOLUTE 0.08 K/mm3 (0.00-0.02); NRBC Auto 0.6 /100 WBC (0.0-0.2); Platelet Count 296 K/mm3 (150-400); RDW Coefficient Variation 14.3 % (11.7-14.2); RDW Standard Deviation 49.1 fL (35.1-46.3); Red Blood Cell Count 3.02 M/mm3 (4.30-5.90); White Blood Cell Count 14.44 K/mm3 (4.00-11.30)
[2024-08-25 17:51] LABS: Ethanol (Alcohol), Blood, Med <3 mg/dL
[2024-08-25 17:59] LABS: Alanine Aminotransfer (ALT/SGP 32 U/L (12-78); Albumin/Globulin Ratio 0.4 (0.8-1.8); Alk Phos 119 U/L (50-136); Anion Gap 11 mmol/L (3-11); Aspartate Aminotrans (AST/SGOT 24 U/L (12-37); Bilirubin, Total 0.8 mg/dL (0.1-1.0); Blood Urea Nitrogen 20 mg/dL (8-24); Bun/Creatinine Ratio 21.1 (12.0-20.0); CO2, Blood 22 mmol/L (21-32); Calcium, Blood 8.5 mg/dL (8.5-10.1); Chloride, Blood 102 mmol/L (98-108); Creatinine, Blood 0.95 mg/dL (0.60-1.20); Globulin, Blood 5.2 g/dL (2.2-4.0); Glomerular Filtration Rate 77 (60-); Glucose, Blood 197 mg/dL (70-99); Potassium, Blood 4.2 mmol/L (3.5-5.5); Sodium, Blood 131 mmol/L (136-145); Total Protein, Blood 7.2 g/dL (6.4-8.2)
[2024-08-25 18:31] LABS: Source, Urine Foley catheter
[2024-08-25] MEDS ORDERED: NS 1,000 ML IV SCH ×2 (18:50→22:00)
[2024-08-25 18:58] LABS: Appearance, Urine Cloudy (Clear); Bilirubin, Urine Neg (Neg); Blood, Urine 4+ (Neg); Color, Urine Yellow (P-Yellow); Glucose Qualitative, Urine Neg (Neg); Ketones, Urine Neg (Neg); Leukocyte Esterase, Urine 3+ (Neg); Nitrite, Urine Pos (Neg); Protein, Urine 3+ (Neg); Specific Gravity, Urine 1.025 (1.003-1.022); Urobilinogen, Urine NORM (Normal)
[2024-08-25 19:10] LABS: Bacteria Many /hpf; Squamous Epithelial Cells Rare /hpf (Few); White Blood Cells, Urine 50-100 /hpf (0-5)
[2024-08-25 19:11] LABS: U Amphetamine Screen Not Detected; U Barbituate Screen Not Detected; U Benzodiazapine Screen Not Detected; U Buprenorphine Screen Not Detected; U Cannabinoids Screen Not Detected; U Cocaine Screen Not Detected; U Methadone Screen Not Detected; U Methamphetamine Screen Not Detected; U Opiates Screen DETECTED; U Oxycodone Screen Not Detected; U Phencyclidine Screen Not Detected
[2024-08-25] MEDS ORDERED: CefTRIAXone Sodium 2,000 MG in NS 100 ML IV ONE (19:45)
[2024-08-25] MEDS ORDERED: Ondansetron HCl 2 MG / ML 2ML Vial IV PRN (22:00)
[2024-08-25] MEDS ORDERED: Acetaminophen 325 MG TABLET PO PRN (22:05)
[2024-08-25] MEDS ORDERED: Albuterol HFA200 ACT/6.7 GM INH INH PRN (22:20)
[2024-08-25] MEDS ORDERED: ATORVASTATIN CA20 MG PO (22:59)
[2024-08-25] MEDS ORDERED: LOSARTAN-HCTZ1 EAC5 PO (23:01)
[2024-08-25 23:14] VITALS: BP 153/70
[2024-08-25 23:52] LABS: Anti-Xa UFH, PHA Monitoring <0.10 IU/mL; Prothrombin Time Results 11.7 Sec (9.7-11.5)
[2024-08-26] MEDS ORDERED: Insulin Regular 100 UNIT/ML 10ML Vial SC SCH
[2024-08-26] MEDS ORDERED: Heparin Sodium 5000 Units/ML 1ML MDV IV ONE (00:15)
[2024-08-26] MEDS ORDERED: Heparin Sodium,Porcine/0.5 NS 500 ML IV SCH (00:15)
--- NOTE | 2024-08-26 00:28 | NUR ---
PATIENT IS A NEW ADMIT FROM THE ED. FOUR PERSON TRANSFER FROM [facility] TO BED. AXOX 3 WITH SOME CONFUSION. MINIMAL WORDS AT THIS TIME. NPO AND BEDREST. KNOWS PERSON, PLACE, AND MONTH WITH NO YEAR. FAMILY DIDN'T COME INTO ROOM FOR ADMIT AND LEFT FOR NIGHT. DENIES CHEST PAIN, SOB, AND N/V. ON ROOM AIR. CBG 201. CHRONIC HUYNH CHANGED IN ED PER RN REPORT. PACER LEFT UPPER CHEST. ORIENTED TO ROOM AND CALL LIGHT. WARM BLANKET PROVIDED. BED ALARM. WCTM.
--- NOTE | 2024-08-26 01:08 | NUR ---
COULTERS SWALLOW EVAL: PATIENT COUGHING AFTER DRINKING ALMOST 3 OZ OF WATER. REMAINS NPO AT THIS TIME. NS STARTED @ 100mL/HR X 2 BAGS. WCTM
--- NOTE | 2024-08-26 04:26 | NUR ---
SHIFT SUMMARY PATIENT HAD NO ACUTE CHANGES. AXOX 3 WITH SPEECH IMPROVING FROM ED RN REPORT. ABLE TO ANSWER QUESTIONS IN COMPLETE SENTENCES. BEDREST. PIV INTACT. HEPARIN INFUSING @ 28.8 mL/HR MANAGED BY PHARMACY. FAILED TONY SWALLOW EVAL COUGHING BEFORE FINISHING 3 OUNCES OF WATER. DENIES CHEST PAIN, SOB, AND N/V. CBG 201. HUYNH PATENT AND DRAINING TO GRAVITY. PACER NYDIA CHEST. VSS/AFEBRILE. CALL LIGHT IN REACH. BED IN LOWEST POSITION. WILL CONTINUE TO MONITOR UNTIL DAY SHIFT NURSE ASSUMES CARE.
[2024-08-26 05:36] LABS: BASOPHILS ABSOLUTE AUTO 0.02 K/mm3 (0.00-0.23); BASOPHILS PERCENT AUTO 0 % (0-2); EOSINOPHILS ABSOLUTE AUTO 0.01 K/mm3 (0.00-0.68); EOSINOPHILS PERCENT AUTO 0 % (0-6); Hematocrit 27.4 % (37.0-53.0); Hemoglobin 9.1 g/dL (13.5-17.5); IMMATURE GRAN ABSOLUTE AUTO 0.12 K/mm3 (0.00-0.10); IMMATURE GRAN PERCENT AUTO 1 % (0-1); LYMPHOCYTES ABSOLUTE AUTO 0.74 K/mm3 (0.84-5.20); LYMPHOCYTES PERCENT AUTO 6 % (21-46); MONOCYTES ABSOLUTE AUTO 2.04 K/mm3 (0.16-1.47); MONOCYTES PERCENT AUTO 15 % (4-13); Mean Corpuscular HGB Conc 33.2 g/dL (31.5-36.5); Mean Corpuscular Volume 99 fL (80-100); Mean Platelet Volume 8.8 fL (9.1-12.4); NEUTROPHILS PERCENT AUTO 78 % (41-73); NRBC ABSOLUTE 0.06 K/mm3 (0.00-0.02); NRBC Auto 0.4 /100 WBC (0.0-0.2); Platelet Count 258 K/mm3 (150-400); RDW Coefficient Variation 14.5 % (11.7-14.2); RDW Standard Deviation 50.4 fL (35.1-46.3); Red Blood Cell Count 2.76 M/mm3 (4.30-5.90); White Blood Cell Count 13.53 K/mm3 (4.00-11.30)
[2024-08-26 06:03] LABS: Albumin, Blood 1.7 g/dL (3.4-5.0); Albumin/Globulin Ratio 0.3 (0.8-1.8); Bilirubin, Total 0.6 mg/dL (0.1-1.0); Bun/Creatinine Ratio 25.1 (12.0-20.0); Calcium, Blood 7.6 mg/dL (8.5-10.1); Creatinine, Blood 0.92 mg/dL (0.60-1.20); Magnesium, Blood 2.1 mg/dL (1.6-2.4); Potassium, Blood 3.5 mmol/L (3.5-5.5); Total Protein, Blood 6.7 g/dL (6.4-8.2)
[2024-08-26 06:08] VITALS: BP 134/64
[2024-08-26 07:22] VITALS: BP 134/63
[2024-08-26] MEDS ORDERED: Docusate Sodium 100 MG Cap PO SCH (09:00)
[2024-08-26] MEDS ORDERED: Lactobacil 2-S.Thermo-Bifido 1 1 Cap PO SCH (09:00)
[2024-08-26 14:51] VITALS: BP 134/69
[2024-08-26] MEDS ORDERED: Piperacillin/Tazobactam Sod 3.375 GM in NS 100 ML IV SCH (15:00)
[2024-08-26] MEDS ORDERED: Insulin Human Lispro 100 Units/ML 3ML Syringe SC SCH (16:30)
--- NOTE | 2024-08-26 17:42 | NUR ---
no acute changes, pleasant to care, family helpful with care, st rounded on patient, dr wiggins reports possible stay until wednesday and then return to adult foster [facility]. clearly makes needs known, heparin infusing, mepilex to coccyx, alert and oriented x3, call light with in reach, will relay to pm rn
[2024-08-26 19:12] VITALS: BP 135/66
[2024-08-26] MEDS ORDERED: CefTRIAXone Sodium 1,000 MG in NS 100 ML IV SCH (21:00)
[2024-08-27 03:52] VITALS: BP 124/63
--- NOTE | 2024-08-27 04:07 | NUR ---
SHIFT SUMMARY PATIENT HAD NO ACUTE CHANGES. ALERT ORIENTED AND BEDREST. DENIES CHEST PAIN, SOB, AND N/V. VSS/AFEBRILE. PIVS INTACT. HEPARIN INFUSING @ 28.8 mL/HR MANAGE BY PHARMACY. CBG 238. HUYNH PATENT AND DRAINING TO GRAVITY. SLEPT MOST OF THE SHIFT. CALL LIGHT IN REACH. BED IN LOWEST POSITION. WILL CONTINUE TO MONITOR UNTIL DAY SHIFT NURSE ASSUMES CARE.
[2024-08-27 06:05] LABS: BASOPHILS ABSOLUTE AUTO 0.02 K/mm3 (0.00-0.23); BASOPHILS PERCENT AUTO 0 % (0-2); EOSINOPHILS ABSOLUTE AUTO 0.02 K/mm3 (0.00-0.68); EOSINOPHILS PERCENT AUTO 0 % (0-6); Hematocrit 27.7 % (37.0-53.0); Hemoglobin 9.2 g/dL (13.5-17.5); IMMATURE GRAN ABSOLUTE AUTO 0.09 K/mm3 (0.00-0.10); IMMATURE GRAN PERCENT AUTO 1 % (0-1); LYMPHOCYTES ABSOLUTE AUTO 0.79 K/mm3 (0.84-5.20); LYMPHOCYTES PERCENT AUTO 6 % (21-46); MONOCYTES ABSOLUTE AUTO 1.34 K/mm3 (0.16-1.47); MONOCYTES PERCENT AUTO 11 % (4-13); Mean Corpuscular HGB 33.1 pg (26.0-34.0); Mean Corpuscular HGB Conc 33.2 g/dL (31.5-36.5); Mean Corpuscular Volume 100 fL (80-100); NEUTROPHILS PERCENT AUTO 82 % (41-73); NRBC ABSOLUTE 0.03 K/mm3 (0.00-0.02); NRBC Auto 0.2 /100 WBC (0.0-0.2); Platelet Count 246 K/mm3 (150-400); RDW Coefficient Variation 14.4 % (11.7-14.2); RDW Standard Deviation 50.5 fL (35.1-46.3); Red Blood Cell Count 2.78 M/mm3 (4.30-5.90); White Blood Cell Count 12.36 K/mm3 (4.00-11.30)
[2024-08-27 06:23] LABS: Bun/Creatinine Ratio 22.1 (12.0-20.0); Calcium, Blood 8.2 mg/dL (8.5-10.1); Creatinine, Blood 0.86 mg/dL (0.60-1.20); Potassium, Blood 3.5 mmol/L (3.5-5.5)
[2024-08-27] MEDS ORDERED: Dose Adjust by Pharmacy XX STA (07:03)
[2024-08-27] MEDS ORDERED: Heparin Sodium 5000 Units/ML 1ML MDV IV ONE ×2 (07:05→10:50)
[2024-08-27 07:52] VITALS: BP 135/61
[2024-08-27 14:46] VITALS: BP 134/58
[2024-08-27] MEDS ORDERED: LevoFLOXacin 750 MG/D5W 150ML 150 ML IV SCH (15:00)
[2024-08-27 19:13] VITALS: BP 139/68
[2024-08-28 02:08] LABS: BASOPHILS ABSOLUTE AUTO 0.03 K/mm3 (0.00-0.23); BASOPHILS PERCENT AUTO 0 % (0-2); EOSINOPHILS ABSOLUTE AUTO 0.06 K/mm3 (0.00-0.68); EOSINOPHILS PERCENT AUTO 1 % (0-6); Hematocrit 26.3 % (37.0-53.0); Hemoglobin 8.8 g/dL (13.5-17.5); IMMATURE GRAN ABSOLUTE AUTO 0.14 K/mm3 (0.00-0.10); IMMATURE GRAN PERCENT AUTO 1 % (0-1); LYMPHOCYTES ABSOLUTE AUTO 0.85 K/mm3 (0.84-5.20); LYMPHOCYTES PERCENT AUTO 9 % (21-46); MONOCYTES ABSOLUTE AUTO 1.17 K/mm3 (0.16-1.47); MONOCYTES PERCENT AUTO 12 % (4-13); Mean Corpuscular HGB 33.1 pg (26.0-34.0); Mean Corpuscular HGB Conc 33.5 g/dL (31.5-36.5); Mean Corpuscular Volume 99 fL (80-100); Mean Platelet Volume 9.2 fL (9.1-12.4); NEUTROPHILS ABSOLUTE AUTO 7.66 K/mm3 (1.96-9.15); NEUTROPHILS PERCENT AUTO 77 % (41-73); NRBC ABSOLUTE 0.02 K/mm3 (0.00-0.02); NRBC Auto 0.2 /100 WBC (0.0-0.2); Platelet Count 255 K/mm3 (150-400); RDW Coefficient Variation 14.1 % (11.7-14.2); RDW Standard Deviation 49.6 fL (35.1-46.3); Red Blood Cell Count 2.66 M/mm3 (4.30-5.90); White Blood Cell Count 9.91 K/mm3 (4.00-11.30)
[2024-08-28 02:21] LABS: Bun/Creatinine Ratio 24.3 (12.0-20.0); Calcium, Blood 7.9 mg/dL (8.5-10.1); Creatinine, Blood 0.78 mg/dL (0.60-1.20); Potassium, Blood 3.3 mmol/L (3.5-5.5)
[2024-08-28] MEDS ORDERED: Dose Adjust by Pharmacy XX STA (02:30)
--- NOTE | 2024-08-28 04:10 | NUR ---
SHIFT SUMMARY PATIENT HAD NO ACUTE CHANGES. ALERT ORIENTED AND BEDREST. DENIES CHEST PAIN, SOB, AND N/V. VSS/AFEBRILE. HUYNH PATENT AND DRAING TO GRAVITY. PIVS INTACT. HEPARIN INFUSING @ 32 mL/HR MANAGE BY PHARMACY. CBG 242. SLEPT MOST OF THE SHIFT. CALL LIGHT IN REACH. BED IN LOWEST POSITION. WILL CONTINUE TO MONITOR UNTIL DAY SHIFT NURSE ASSUMES CARE.
[2024-08-28 04:22] VITALS: BP 133/68
[2024-08-28 07:34] VITALS: BP 145/70
[2024-08-28] MEDS ORDERED: Nitrofurantoin/Nitrofuran Mac 100 MG Cap PO SCH (10:00)
[2024-08-28] MEDS ORDERED: NITR100CA PO (14:28)
[2024-08-28] MEDS ORDERED: VISBIOME 112.51 EACH PO (14:28)
[2024-08-28 15:35] VITALS: BP 151/62
--- NOTE | 2024-08-28 16:44 | NUR ---
PATIENT D/C'D TO HOME VIA W/C TRANSPORT. DC INSTRUCTIONS AND EDUCATION DISCUSSED WITH PATIENT AND DAUGHTER AND COPY PROVIDED. PATIENT DENIES ANY FURTHER QUESTIONS OR CONCERNS. RX MEDICATIONS FAXED TO [facility].
== END 2024-08-28 16:33 | disposition home or self-care (01) | DRG 871 ==
LOC: ER 16:20 → MEDS 22:55
PROVIDERS: Emergency Medicine; Family Medicine; ADMIT Student in an Organized Health Care Education/Training Program
DX: A41.81 Sepsis due to Enterococcus (principal); G92.8 Other toxic encephalopathy; N39.0 Urinary tract infection, site not specified; I82.612 Acute embolism and thrombosis of superficial veins of left upper extremity; C78.02 Secondary malignant neoplasm of left lung; C78.01 Secondary malignant neoplasm of right lung; Z66 Do not resuscitate; A41.51 Sepsis due to Escherichia coli [E. coli]; E11.22 Type 2 diabetes mellitus with diabetic chronic kidney disease; N18.30 Chronic kidney disease, stage 3 unspecified; I12.9 Hypertensive chronic kidney disease with stage 1 through stage 4 chronic kidney disease, or unspecified chronic kidney disease; M51.369 Other intervertebral disc degeneration, lumbar region without mention of lumbar back pain or lower extremity pain; Z95.0 Presence of cardiac pacemaker; Z87.891 Personal history of nicotine dependence; Z79.01 Long term (current) use of anticoagulants; Z79.4 Long term (current) use of insulin; Z79.899 Other long term (current) drug therapy; Z85.828 Personal history of other malignant neoplasm of skin
CPT/HCPCS: 36415; 51702; 80048; 80053; 80320; 81001; 82947; 83735; 85025; 85520; 85610; 87077; 87086; 87186; 92610; 93005; 93010; 93971; 96361-59; 96365-59; 99285-25; A9270; J0696; J1644; J1815; J1956; J2543; J7030

== ENCOUNTER 2024-09-20 17:49 | Inpatient (IN) | payer OTHER, MEDICARE ==
[~2024-09-20] VITALS: Ht 175.3 cm; Wt 85.5 kg
[~2024-09-20 17:49] MED LIST changes: +ATORVASTATIN CA20 MG PO; +ELIQUIS5 M3 PO; +NITR100CA PO; +VISBIOME 112.51 EACH PO
[2024-09-20] MEDS ORDERED: Ipratropium/Albuterol SulF 2.5-0.5MG/3 ML Amp INH ONE (18:25)
[2024-09-20 18:38] LABS: Base Excess Venous -3.7 mmol/L; Bicarbonate Venous 21.8 mmol/L (24.0-30.0); PCO2 Venous 31.2 mmHg (38-42); pH Blood Venous 7.43 (7.34-7.37)
[2024-09-20 18:48] LABS: BASOPHILS ABSOLUTE AUTO 0.06 K/mm3 (0.00-0.23); BASOPHILS PERCENT AUTO 0 % (0-2); EOSINOPHILS ABSOLUTE AUTO 0.12 K/mm3 (0.00-0.68); EOSINOPHILS PERCENT AUTO 1 % (0-6); Hematocrit 32.5 % (37.0-53.0); Hemoglobin 10.5 g/dL (13.5-17.5); IMMATURE GRAN ABSOLUTE AUTO 0.15 K/mm3 (0.00-0.10); IMMATURE GRAN PERCENT AUTO 1 % (0-1); LYMPHOCYTES ABSOLUTE AUTO 0.67 K/mm3 (0.84-5.20); LYMPHOCYTES PERCENT AUTO 4 % (21-46); MONOCYTES ABSOLUTE AUTO 1.07 K/mm3 (0.16-1.47); MONOCYTES PERCENT AUTO 6 % (4-13); Mean Corpuscular HGB Conc 32.3 g/dL (31.5-36.5); Mean Corpuscular Volume 102 fL (80-100); Mean Platelet Volume 8.8 fL (9.1-12.4); NEUTROPHILS ABSOLUTE AUTO 16.01 K/mm3 (1.96-9.15); NEUTROPHILS PERCENT AUTO 89 % (41-73); Platelet Count 349 K/mm3 (150-400); RDW Coefficient Variation 16.9 % (11.7-14.2); RDW Standard Deviation 63.2 fL (35.1-46.3); Red Blood Cell Count 3.18 M/mm3 (4.30-5.90); White Blood Cell Count 18.08 K/mm3 (4.00-11.30)
[2024-09-20] MEDS ORDERED: CefTRIAXone Sodium 1,000 MG in NS 100 ML IV ONE (19:05)
[2024-09-20] MEDS ORDERED: NS 1,000 ML IV SCH (19:05)
[2024-09-20 19:12] LABS: Albumin/Globulin Ratio 0.4 (0.8-1.8); Bilirubin, Total 0.8 mg/dL (0.1-1.0); Bun/Creatinine Ratio 15.2 (12.0-20.0); Calcium, Blood 8.5 mg/dL (8.5-10.1); Creatinine, Blood 0.79 mg/dL (0.60-1.20); Globulin, Blood 5.1 g/dL (2.2-4.0); Potassium, Blood 4.3 mmol/L (3.5-5.5); Total Protein, Blood 7.1 g/dL (6.4-8.2)
[2024-09-20 19:50] LABS: Source, Urine Clean Catch
[2024-09-20 19:54] LABS: Appearance, Urine Hazy (Clear); Bilirubin, Urine Neg (Neg); Blood, Urine 5+ (Neg); Color, Urine Yellow (P-Yellow); Glucose Qualitative, Urine Neg (Neg); Ketones, Urine Neg (Neg); Leukocyte Esterase, Urine 2+ (Neg); Nitrite, Urine Neg (Neg); Protein, Urine 3+ (Neg); Urobilinogen, Urine NORM (Normal)
[2024-09-20 20:19] LABS: Bacteria Many /hpf; Red Blood Cells, Urine 25-50 /hpf (0-2); Squamous Epithelial Cells Rare /hpf (Few); White Blood Cells, Urine 50-100 /hpf (0-5)
[2024-09-20] MEDS ORDERED: Furosemide 10 MG/ML 4ML Vial IV ONE (21:05)
[2024-09-20] MEDS ORDERED: Acetaminophen 325 MG TABLET PO PRN (22:15)
[2024-09-20] MEDS ORDERED: Ipratropium/Albuterol SulF 2.5-0.5MG/3 ML Amp INH PRN (22:20)
[2024-09-21 00:16] VITALS: BP 128/63
[2024-09-21] MEDS ORDERED: Ampicillin Sod/Sulbactam Sod 3 GM in NS 100 ML IV SCH ×2 (01:50→08:00)
[2024-09-21] MEDS ORDERED: NS 250 ML IV PRN (01:55)
[2024-09-21 04:02] VITALS: BP 117/63
--- NOTE | 2024-09-21 04:56 | NUR ---
SHIFT SUMMARY PT ARRIVED FROM ER AROUND MIDNIGHT. PT A&Ox4 AND PLEASANT. ORIENTED TO ROOM. PT's IV APPEARED TO BE INFILTRATED WHEN COMING TO MED FLOOR AND BREAK NURSE DC'd IV. SEVERAL ATTEMPTS TO PLACE NEW IV WITHOUT SUCCESS. POWER GLIDE PLACED BY CHARGE NURSE. IV ABX GIVEN PER EMAR. 3 SMALL STAGE 2 PRESSURE INJURIES NEAR COCCYX. FOAM DRESSING IN PLACE. NOTIFIED AND PICTURES IN CHART. PT V-PACED AT [address] AND DRAINING TO GRAVITY. VSS. BED ALARM ON. BED IN LOWEST POSITION AND CALL LIGHT IN REACH.
[2024-09-21 05:25] LABS: BASOPHILS ABSOLUTE AUTO 0.03 K/mm3 (0.00-0.23); BASOPHILS PERCENT AUTO 0 % (0-2); EOSINOPHILS ABSOLUTE AUTO 0.17 K/mm3 (0.00-0.68); EOSINOPHILS PERCENT AUTO 2 % (0-6); Hematocrit 25.5 % (37.0-53.0); Hemoglobin 8.2 g/dL (13.5-17.5); IMMATURE GRAN ABSOLUTE AUTO 0.05 K/mm3 (0.00-0.10); IMMATURE GRAN PERCENT AUTO 1 % (0-1); LYMPHOCYTES ABSOLUTE AUTO 0.97 K/mm3 (0.84-5.20); LYMPHOCYTES PERCENT AUTO 10 % (21-46); MONOCYTES ABSOLUTE AUTO 0.53 K/mm3 (0.16-1.47); MONOCYTES PERCENT AUTO 6 % (4-13); Mean Corpuscular HGB 32.7 pg (26.0-34.0); Mean Corpuscular HGB Conc 32.2 g/dL (31.5-36.5); Mean Corpuscular Volume 102 fL (80-100); Mean Platelet Volume 8.7 fL (9.1-12.4); NEUTROPHILS ABSOLUTE AUTO 7.73 K/mm3 (1.96-9.15); NEUTROPHILS PERCENT AUTO 82 % (41-73); Platelet Count 321 K/mm3 (150-400); RDW Standard Deviation 62.3 fL (35.1-46.3); Red Blood Cell Count 2.51 M/mm3 (4.30-5.90); White Blood Cell Count 9.48 K/mm3 (4.00-11.30)
[2024-09-21 05:53] LABS: Albumin, Blood 1.7 g/dL (3.4-5.0); Albumin/Globulin Ratio 0.4 (0.8-1.8); Bilirubin, Total 0.6 mg/dL (0.1-1.0); Bun/Creatinine Ratio 18.1 (12.0-20.0); Calcium, Blood 7.8 mg/dL (8.5-10.1); Creatinine, Blood 0.89 mg/dL (0.60-1.20); Globulin, Blood 4.3 g/dL (2.2-4.0); Magnesium, Blood 2.2 mg/dL (1.6-2.4); Potassium, Blood 3.7 mmol/L (3.5-5.5)
[2024-09-21 07:11] VITALS: BP 129/68
[2024-09-21] MEDS ORDERED: Furosemide 10 MG / ML 2ML Vial IV SCH (09:00)
[2024-09-21] MEDS ORDERED: Losartan Potassium 50 MG Tab PO SCH (09:00)
[2024-09-21] MEDS ORDERED: Atorvastatin 10 MG Tab PO SCH (09:00)
[2024-09-21] MEDS ORDERED: Lactobacil 2-S.Thermo-Bifido 1 1 Cap PO SCH (09:00)
[2024-09-21] MEDS ORDERED: Docusate Sodium 100 MG Cap PO SCH (09:00)
[2024-09-21] MEDS ORDERED: Metoprolol Succinate 50 MG TABCR PO SCH (09:00)
--- NOTE | 2024-09-21 09:50 | NUR ---
SPOKE WITH DR. GALVAN NOTIFIED HIM OF PROLONGED QTC OF 0.52. ALSO INQUIRED ABOUT HEART RATE PARAMETERS ON METPROLOL WITH A PACERMAKER SET AT 60; PER DR GALVAN WILL UPDATE PARAMETERS ON ORDER. ALSO NOTIFIED DR GALVAN OF IMAGING REFUSING TO DO MRI PER PROTOCOL EVEN WITH INFORMATION OBTAINED FOR PACEMAKER.
[2024-09-21] MEDS ORDERED: Insulin Human Lispro 100 Units/ML 3ML Syringe SC SCH (11:30)
[2024-09-21 15:47] VITALS: BP 120/69
--- NOTE | 2024-09-21 17:05 | NUR ---
REVIEWED AIRPORT RAMP ATTENDANT'S DOCUMENTATION; AGREEABLE WITH FINDINGS IF NOT AGREEABLE REVIEWED WITH AIRPORT RAMP ATTENDANT/REASSESSED AND UPDATED FINDIDNGS OR CHARTED MY OWN FINDINGS.
--- NOTE | 2024-09-21 18:29 | NUR ---
WINDOWS ADMINISTRATOR STUDENT: PT A0X4 THROUGHOUT SHIFT. REMAINED IN BED WITH REPOSITIONING DONE DURING SHIFT. NOT EATING MUCH PROTEIN AT MEALS.
--- NOTE | 2024-09-21 19:08 | NUR ---
PATIENT SOUNDING MORE LABORED/WHEEZY WITH BREATHING POST DINNER AND DURING BED SIDE SHIFT REPORT; PT DENIES FEELING SHORT OF BREATH OR DIFFICULTY BREATHING. CALLED RT AND REQUESTED A BREATHING TREATMENT.
[2024-09-21 20:34] VITALS: BP 135/75
[2024-09-21] MEDS ORDERED: Ampicillin Sod 1,000 MG in NS 50 ML IV SCH (22:39)
[2024-09-22 00:40] VITALS: BP 122/61
[2024-09-22 04:13] VITALS: BP 126/69
--- NOTE | 2024-09-22 05:14 | NUR ---
SHIFT SUMMARY PT A&Ox4 AND PLEASANT. DENIED PAIN OR FEELING SOB. RT AT BEDSIDE AT START OF SHIFT, STATED PT HAD TRACHEAL WHEEZES THAT IMPROVED T/O NIGHT. PT HAD ONE SMALL INCONTINENT BM. FOAM DRESSING ON COCCYX CHANGED. PT REPOSITIONED T/O NIGHT. BILATERAL LEGS ELEVATED ON PILLOW. VSS. BED ALARM ON. BED IN LOWEST POSITION AND CALL LIGHT IN REACH.
[2024-09-22 05:48] LABS: BASOPHILS ABSOLUTE AUTO 0.05 K/mm3 (0.00-0.23); BASOPHILS PERCENT AUTO 1 % (0-2); EOSINOPHILS ABSOLUTE AUTO 0.36 K/mm3 (0.00-0.68); EOSINOPHILS PERCENT AUTO 4 % (0-6); Hematocrit 25.5 % (37.0-53.0); Hemoglobin 8.4 g/dL (13.5-17.5); IMMATURE GRAN ABSOLUTE AUTO 0.05 K/mm3 (0.00-0.10); IMMATURE GRAN PERCENT AUTO 1 % (0-1); LYMPHOCYTES ABSOLUTE AUTO 0.81 K/mm3 (0.84-5.20); LYMPHOCYTES PERCENT AUTO 9 % (21-46); MONOCYTES ABSOLUTE AUTO 0.15 K/mm3 (0.16-1.47); MONOCYTES PERCENT AUTO 2 % (4-13); Mean Corpuscular HGB 33.3 pg (26.0-34.0); Mean Corpuscular HGB Conc 32.9 g/dL (31.5-36.5); Mean Corpuscular Volume 101 fL (80-100); Mean Platelet Volume 8.7 fL (9.1-12.4); NEUTROPHILS PERCENT AUTO 84 % (41-73); Platelet Count 352 K/mm3 (150-400); RDW Coefficient Variation 17.2 % (11.7-14.2); RDW Standard Deviation 62.5 fL (35.1-46.3); Red Blood Cell Count 2.52 M/mm3 (4.30-5.90); White Blood Cell Count 9.02 K/mm3 (4.00-11.30)
[2024-09-22 06:13] LABS: Bun/Creatinine Ratio 22.7 (12.0-20.0); Calcium, Blood 8.2 mg/dL (8.5-10.1); Creatinine, Blood 0.84 mg/dL (0.60-1.20); Potassium, Blood 3.6 mmol/L (3.5-5.5)
[2024-09-22 07:57] VITALS: BP 126/60
[2024-09-22] MEDS ORDERED: Meropenem 1,000 MG in NS 100 ML IV SCH (08:00)
[2024-09-22] MEDS ORDERED: Metoprolol Succinate 50 MG TABCR PO SCH (09:00)
[2024-09-22] MEDS ORDERED: TraMADol HCl 50 MG Tab PO PRN (11:10)
[2024-09-22 11:41] VITALS: BP 114/59
--- NOTE | 2024-09-22 13:02 | NUR ---
REVIEWED STEAM SETTER DOCUMENTATION AGREEABLE WITH FINDINGS.
[2024-09-22 16:05] VITALS: BP 114/58
--- NOTE | 2024-09-22 17:01 | NUR ---
WORKFORCE MANAGER STUDENT: THORACENTESIS CANCELLED BY RADIOLOGY DUE LOW FLUID. CONTINUE WITH IV LASIX BID. PT REMIAINED IN BED THROUGHOUT THE SHIFT WITH REPOSITIONING. INADEQUATE FOOD INTAKE. RESTARTING ELIQIUS THIS EVENING. CALLED DR AND TRAMADOL WAS ORDERED FOR RIGHT SHOULDER AND LEFT ELBOW PAIN. PT SLEPT MOST OF THE AFTERNOON.
[2024-09-22 20:35] VITALS: BP 111/54
[2024-09-22] MEDS ORDERED: Apixaban 5 MG Tab PO SCH (21:00)
[2024-09-23 00:56] VITALS: BP 119/61
[2024-09-23 05:07] VITALS: BP 113/64
--- NOTE | 2024-09-23 05:23 | NUR ---
SHIFT SUMMARY ALERT AND ORIENTED X4, SLEPT WELL ALL THROUGH BOOKKEEPING ASSISTANT,RECIEVED HIS IV ANTIBIOTIC, AND OTHER MEDICATION PER EMAR.ON URINARY CATHETER, WHEEZY RESPIRATION, UPPER LEFT ARM SWELLING STILL REMARKABLE,CALL LIGHT ANSWERED PROMPTLY AND LEFT WITHIN PATIENT REACH.
[2024-09-23 05:49] LABS: BASOPHILS ABSOLUTE AUTO 0.05 K/mm3 (0.00-0.23); BASOPHILS PERCENT AUTO 1 % (0-2); EOSINOPHILS PERCENT AUTO 5 % (0-6); Hematocrit 23.2 % (37.0-53.0); Hemoglobin 7.5 g/dL (13.5-17.5); Mean Corpuscular HGB Conc 32.3 g/dL (31.5-36.5); Mean Corpuscular Volume 102 fL (80-100); Mean Platelet Volume 8.9 fL (9.1-12.4); Platelet Count 379 K/mm3 (150-400); RDW Coefficient Variation 16.9 % (11.7-14.2); RDW Standard Deviation 62.5 fL (35.1-46.3); Red Blood Cell Count 2.27 M/mm3 (4.30-5.90); White Blood Cell Count 8.43 K/mm3 (4.00-11.30)
[2024-09-23 05:50] LABS: IMMATURE GRAN ABSOLUTE AUTO 0.08 K/mm3 (0.00-0.10); IMMATURE GRAN PERCENT AUTO 1 % (0-1); LYMPHOCYTES ABSOLUTE AUTO 0.94 K/mm3 (0.84-5.20); LYMPHOCYTES PERCENT AUTO 11 % (21-46); MONOCYTES ABSOLUTE AUTO 0.05 K/mm3 (0.16-1.47); MONOCYTES PERCENT AUTO 1 % (4-13); NEUTROPHILS ABSOLUTE AUTO 6.91 K/mm3 (1.96-9.15); NEUTROPHILS PERCENT AUTO 82 % (41-73)
[2024-09-23 06:09] LABS: BASOPHILS PERCENT MAN 0 % (0-2); EOSINOPHILS ABSOLUTE MAN 0.25 K/mm3 (0.00-0.68); EOSINOPHILS PERCENT MAN 3 % (0-6); LYMPHOCYTES ABSOLUTE MAN 0.92 K/mm3 (0.84-5.20); LYMPHOCYTES PERCENT MAN 11 % (21-46); MONOCYTES ABSOLUTE MAN 0.08 K/mm3 (0.16-1.47); MONOCYTES PERCENT MAN 1 % (4-13); NEUTROPHILS ABSOLUTE MAN 7.16 K/mm3 (1.96-9.15); SEG NEUTROPHILS PERCENT MAN 85 % (41-73); TOTAL CELLS COUNTED 100
[2024-09-23 06:14] LABS: Bun/Creatinine Ratio 24.4 (12.0-20.0); Calcium, Blood 7.9 mg/dL (8.5-10.1); Creatinine, Blood 0.86 mg/dL (0.60-1.20)
[2024-09-23 07:51] VITALS: BP 119/64
[2024-09-23 09:38] LABS: IMMATURE RETIC FRACTION 2.6 % (2.3-16.0); RETIC HGB EQUIVALENT 35.7 pg (28.20-36.60); RETICULOCYTE ABSOLUTE 0.0383 M/mm3 (0.0200-0.1100); RETICULOCYTE COUNT PERCENT 1.71 % (0.50-2.50)
--- NOTE | 2024-09-23 12:49 | NUR ---
NOTIFIED DR. GALVAN OF DOWNWARD TREND OF HEMOGLOBIN SINCE ADMISSION; RIM TURNING MACHINE OPERATOR REPORTED DARK GREEN/BLACK STOOL, BUT PATIENT HAD A BM THIS MORNING AND IT WAS BROWN. DR. PAYAN NOTIFIED. ALSO DISCUSSED PATIENT'S L ARM/ELBOW PAIN AND SWELLING; RESTARTED ON ELIQUIS LAST NIGHT; DR. GALVAN AWARE.
[2024-09-23 14:32] VITALS: BP 123/63
[2024-09-23 15:12] VITALS: BP 115/61
--- NOTE | 2024-09-23 17:53 | NUR ---
SHIFT SUMMARY: NO EVENTS OR CHANGES WITH THE PATIENT THROUGHOUT THE SHIFT. HE SPENDS MOST OF THE DAY SLEEPING, ORAL INTAKE IS POOR, OFFERING SUPPLEMENTAL DRINKS. PATIENT CALL LIGHT WITHIN REACH, NO SIGNS OR SYMPTOMS OF DISTRESS, PLAN OF CARE ONGOING.
[2024-09-23 20:30] VITALS: BP 121/60
[2024-09-24 00:27] VITALS: BP 123/61
--- NOTE | 2024-09-24 03:44 | NUR ---
SHIFT SUMMARY REPORT PATIENT ALERT AND ORIENTED STILL BED WALL , TURN TWICE DURING THE SHIFT, RECIVED HIS IV MERREN 1G BY 1200, IV LINE PATENT, LEFT UPER LIMB STILL SWOLLEN AND RED, MARKED OEDEMA OF THE LOWER EXTREMITIES, RAISE WITH PILLOWS,SLEPT WELL VERBERLIZED MINIMAL PAIN.REFUSE HIS DUCOSATE PILL, OTHER MEDICATION SERVED PER EMAR, CALL LIGHT WITHIN [facility], BED AT THE LOWEST HIEGHT.
[2024-09-24 06:00] VITALS: BP 119/63
[2024-09-24 06:41] LABS: Hematocrit 25.5 % (37.0-53.0); Hemoglobin 8.3 g/dL (13.5-17.5)
[2024-09-24 06:58] LABS: Bun/Creatinine Ratio 31.7 (12.0-20.0); Calcium, Blood 8.2 mg/dL (8.5-10.1); Creatinine, Blood 0.79 mg/dL (0.60-1.20); Potassium, Blood 3.6 mmol/L (3.5-5.5)
[2024-09-24 08:15] VITALS: BP 109/58
[2024-09-24 14:03] VITALS: BP 115/58
--- NOTE | 2024-09-24 15:16 | NUR ---
NO CHANGES FOR PT. NO C/O PAIN SOB OR CHEST P[AIN
[2024-09-24 15:49] VITALS: BP 125/67
[2024-09-24 20:22] VITALS: BP 123/68
[2024-09-25] VITALS (7 sets, daily range): BP systolic 115–140; BP diastolic 63–71
--- NOTE | 2024-09-25 04:08 | NUR ---
SHIFT SUMMARY PATIENT HAD NO ACUTE CHANGES. ALERT ORIENTED AND BEDREST. DENIES CHEST PAIN, SOB, AND N/V. VSS/AFEBRILE. POWERGLIDE NYDIA ARM INTACT. IV ABX INFUSED. HUYNH PATENT AND DRAINING TO GRAVITY. TELE V-PACED 69. CBG 152. WATCHED TV FIRST PART OF SHIFT AND SLEPT REST. CALL LIGHT IN REACH. BED IN LOWEST POSITION. WILL CONTINUE TO MONITOR UNTIL DAY SHIFT NURSE ASSUMES CARE.
[2024-09-25 05:57] LABS: Hematocrit 23.6 % (37.0-53.0); Hemoglobin 7.7 g/dL (13.5-17.5)
[2024-09-25 06:13] LABS: Bun/Creatinine Ratio 31.3 (12.0-20.0); Calcium, Blood 8.3 mg/dL (8.5-10.1); Creatinine, Blood 0.8 mg/dL (0.60-1.20); Potassium, Blood 3.7 mmol/L (3.5-5.5)
--- NOTE | 2024-09-25 08:43 | NUR ---
ASSUMPTION OF CARE: ASSUMED CARE OF PATIENT. ASLEEP DURING SHIFT CHANGE REPORT. LYING IN BED. BREATHING EVEN AND UNLABORED ON ROOM AIR. HUYNH PATENT AND DRAINING DARK YELLOW URINE TO GRAVITY. TELE STRIP REVIEWED: V-PACED @ 66 c QTC 0.45. BED IN LOWEST POSITION. CALL LIGHT WITHIN REACH. NO ACUTE NEEDS.
[2024-09-25] MEDS ORDERED: Arginine/Glutamine/Calcium Hmb 1 Packet PO SCH (09:00)
--- NOTE | 2024-09-25 19:30 | NUR ---
[id number]-[facility] SUMMARY: A&Ox3-4. PLEASANT AND COOPERATIVE c CARE. CALLS APPROPRIATELY AND IS ABLE TO ADVOCATE NEEDS EFFECTIVELY. CHRONIC HUYNH PATENT AND DRAINING YELLOW URINE TO GRAVITY. SOME C/O PAIN IN TODAY. FAMILY IN TO VISIT MOST OF DAY. NO ACUTE CONCERNS. REPORT TO ONCOMING RN.
[2024-09-26 00:52] VITALS: BP 105/55
[2024-09-26 04:13] VITALS: BP 132/73
[2024-09-26 06:46] LABS: Hematocrit 23.4 % (37.0-53.0); Hemoglobin 7.9 g/dL (13.5-17.5)
[2024-09-26 07:06] LABS: Bun/Creatinine Ratio 37.8 (12.0-20.0); Calcium, Blood 8.3 mg/dL (8.5-10.1); Creatinine, Blood 0.72 mg/dL (0.60-1.20); Potassium, Blood 5.5 mmol/L (3.5-5.5)
--- NOTE | 2024-09-26 07:08 | NUR ---
SUMMARY: PT A/O TO SELF AND SURROUNDINGS BUT WAS VERY DROWSY T/O NOCTE, ONLY WAKING BRIEFLY FOR CARE AND MEDS. AFFECT WAS WITHDRAWN AND HE LACKED INTERACTION W/STAFF BUT WAS PLEASANT AND COOPERATIVE W/CARE. IV ABX RECEIVED PER EMAR THEN SL'D. TURN SCHEDULE MAINTAINED AND PT CONT'S TO BE RIGID/STIFF W/REPOSITIONING. SORES OBSERVED TO BILAT BUTTOCKS AND MEPILEX WAS REPLACED D/T BECOMING SOILED W/STOOL. HEEL PROTECTORS IN PLACE AND EXT'S ELEVATED ON PILLOWS. L.ARM REMAINS VERY EDEMATOUS, RED AND TENDER FROM PRIOR IV INFILTRATION. PG TO EMILY IS PATENT/SL'D. CHRONIC HUYNH INTACT AND DRAINING TO GRAVITY. HE'S V-PACED ON TELE AT 60'S BPM. NO ACUTE CHANGES, VSS/AFEBRILE. REPORT PROVIDED TO DAY RN.
[2024-09-26 07:38] VITALS: BP 129/75
--- NOTE | 2024-09-26 07:43 | NUR ---
ASSUMPTION OF CARE: ASSUMED CARE OF PATIENT. ASLEEP DURING SHIFT CHANGE REPORT. LYING IN BED. BREATHING EVEN AND UNLABORED ON ROOM AIR. HUYNH PATENT AND DRAINING YELLOW URINE TO GRAVITY. TELE V-PACED. BED IN LOWEST POSITION. CALL LIGHT WITHIN REACH. NO ACUTE NEEDS.
[2024-09-26 11:12] VITALS: BP 109/60
[2024-09-26 15:46] VITALS: BP 103/62
--- NOTE | 2024-09-26 19:23 | NUR ---
END OF SHIFT SUMMARY: A&Ox3-4. PLEASANT AND COOPERATIVE WITH CARE. DOES NOT UTILIZE CALL LIGHT; VERY QUIET AND WITHDRAWN BUT ANSWERS APPROPRIATELY. CHRONIC HUYNH PATENT AND DRAINING YELLOW URINE TO GRAVITY. INCONTINENT OF BOWEL; LOG ROLL TO CHANGE. BEDBOUND AT THIS TIME. TELE V-PACED. ANTICIPATE DC TOMORROW OR WEDNESDAY. BED IN LOWEST POSITION, CALL LIGHT WITHIN REACH, ALL NEEDS MET. REPORT TO ONCOMING NURSE.
[2024-09-26 19:31] VITALS: BP 111/64
[2024-09-27 00:29] VITALS: BP 120/67
[2024-09-27 04:37] VITALS: BP 111/74
--- NOTE | 2024-09-27 06:17 | NUR ---
SUMMARY: PT A/OX3-4, ENDORSES NEEDS AND IS PLEASANT AND COOPERATIVE W/CARE. HE'S BEDREST AT PRESENT D/T DECONDITIONING W/TURN SCHEDULE MAINTAINED. MEPILEX REMAINS C/D/I TO SORES ON BUTTOCKS. CHRONIC HUYNH PATENT/DRAINING TO GRAVITY. HE REMAINS VPACED AT 60'S BPM. PT DENIED PAIN AND ALL OTHER COMPLAINTS. VSS AND AFEBRILE, NO ACUTE CHANGES. WILL REPORT TO DAY RN.
[2024-09-27 07:16] VITALS: BP 124/68
[2024-09-27 07:39] LABS: Bun/Creatinine Ratio 34.5 (12.0-20.0); Calcium, Blood 7.9 mg/dL (8.5-10.1); Creatinine, Blood 0.84 mg/dL (0.60-1.20); Potassium, Blood 4.2 mmol/L (3.5-5.5)
[2024-09-27] MEDS ORDERED: FURO40 PO (11:56)
--- NOTE | 2024-09-27 13:04 | NUR ---
PT DIACHARGED 1255, PIVOT [place] TO PRIVATE WHEELCHAIR, MIN WEIGHT BEARING. [facility]. WHEELCHAIR TRANSPORTATION TRANSFERING TO HIS HOME. SENT HOME WITH ALL BELONGINGS
== END 2024-09-27 13:13 | disposition home or self-care (01) | DRG 698 ==
LOC: ER 17:49 → MEDS 17:50 → ERHOLD 17:50 → MEDS 09-21 00:03
PROVIDERS: Student in an Organized Health Care Education/Training Program; ADMIT Student in an Organized Health Care Education/Training Program
DX: T83.511A Infection and inflammatory reaction due to indwelling urethral catheter, initial encounter (principal); A41.9 Sepsis, unspecified organism; R65.20 Severe sepsis without septic shock; C49.9 Malignant neoplasm of connective and soft tissue, unspecified; J90 Pleural effusion, not elsewhere classified; I82.611 Acute embolism and thrombosis of superficial veins of right upper extremity; C78.00 Secondary malignant neoplasm of unspecified lung; E87.1 Hypo-osmolality and hyponatremia; I48.20 Chronic atrial fibrillation, unspecified; C79.51 Secondary malignant neoplasm of bone; Z66 Do not resuscitate; N39.0 Urinary tract infection, site not specified; L89.152 Pressure ulcer of sacral region, stage 2; E11.22 Type 2 diabetes mellitus with diabetic chronic kidney disease; I12.9 Hypertensive chronic kidney disease with stage 1 through stage 4 chronic kidney disease, or unspecified chronic kidney disease; N18.30 Chronic kidney disease, stage 3 unspecified; M51.360 Other intervertebral disc degeneration, lumbar region with discogenic back pain only; D53.9 Nutritional anemia, unspecified; Z87.891 Personal history of nicotine dependence; N31.9 Neuromuscular dysfunction of bladder, unspecified; Z95.0 Presence of cardiac pacemaker; Z79.01 Long term (current) use of anticoagulants; Y92.89 Other specified places as the place of occurrence of the external cause; Z79.4 Long term (current) use of insulin; Z79.899 Other long term (current) drug therapy; Y84.6 Urinary catheterization as the cause of abnormal reaction of the patient, or of later complication, without mention of misadventure at the time of the procedure
CPT/HCPCS: 51702; 71046; 71260; 74177; 80048; 80053; 81001; 82607; 82746; 82803; 82947; 83605; 83690; 83735; 83880; 84145; 84484; 85014; 85018; 85025; 85045; 85730; 87077; 87086; 87186; 93005; 93010; 93306; 94640; 94664; 94760; 96365-59; 96367; 96375; 96376; 99285-25; A9270; G0378; J0295; J0696; J1938; J2185; J7030; J7050; Q9967